=== PATIENT | male | born 1950 | race Two or more races ===

== ENCOUNTER 2016-07-10 01:50 | Emergency (ER) | payer OTHER ==
[~2016-07-10] VITALS: Ht 165.1 cm; Wt 53.5 kg
[~2016-07-10 01:50] MED LIST: BELL30TI2; CLON2TAB3 PO; METO10TA3 PO; NAPR-607; NOR7.5T PO; OMEP20TA44 PO; PRO125RS PO; RANI1TAB4 PO
[2016-07-10 02:12] VITALS: BP 114/73
[2016-07-10 02:34] LABS: Basophils # (auto) 0 uL; Basophils % (auto) 0.8 % (0.0-2.0); Eosinophils # (auto) 0 uL; Eosinophils % (auto) 0.7 % (0.0-7.0); Hematocrit 36.7 % (41.0-53.0); Hemoglobin 12.5 g/dL (13.5-17.5); Lymphocytes # (auto) 0.9 uL; Lymphocytes % (auto) 17.5 % (10.0-50.0); Mean Corpuscular Volume 94.3 fL (80.0-100.0); Mean Platelet Volume 7.4 fL (7.4-10.4); Monocytes # (auto) 0.1 uL; Neutrophils # (auto) 4.3 uL; Platelet Count (auto) 360 10^3/uL (140-450); Red Cell Distribution Width 13.8 % (11.6-16.0); White Blood Cell 5.4 10^3/uL (4.4-10.8)
[2016-07-10 02:51] LABS: Albumin 3.2 g/dL (3.4-5.0); BUN/Creatinine Ratio 14.8; Calcium 7.6 mg/dL (8.5-10.1); Potassium 3.4 mmol/L (3.5-5.1)
[2016-07-10 02:54] LABS: Bilirubin, Total 0.2 mg/dL (0.2-1.0); Total Protein 6.7 g/dL (6.4-8.2)
== END 2016-07-10 08:13 | disposition left against medical advice (07) ==
LOC: ER 01:53
DX: H92.09 Otalgia, unspecified ear (principal); Z53.21 Procedure and treatment not carried out due to patient leaving prior to being seen by health care provider
CPT/HCPCS: 36415; 80053; 84484; 85025; 85049; 93005

== ENCOUNTER 2019-10-17 02:13 | Emergency (ER) | payer OTHER ==
[~2019-10-17] VITALS: Ht 167.6 cm; Wt 54.4 kg
[~2019-10-17 02:13] MED LIST changes: +CLON-707 PO; -CLON2TAB3 PO; -NAPR-607; +NAPR500T31; -OMEP20TA44 PO; +PANT40TA2 PO; -RANI1TAB4 PO
[2019-10-17 02:27] VITALS: BP 153/78
[2019-10-17 03:01] LABS: Basophils # (auto) 0 10 ^3/uL (0-0.2); Basophils % (auto) 0.2 % (0.0-2.0); Eosinophils # (auto) 0 10 ^3/uL (0-0.8); Eosinophils % (auto) 0.1 % (0.0-7.0); Hematocrit 41.9 % (41.0-53.0); Lymphocytes # (auto) 0.8 10 ^3/uL (0.4-5.4); Lymphocytes % (auto) 3.7 % (10.0-50.0); Mean Corpuscular Hemoglobin 31.8 pg (28.0-32.0); Mean Corpuscular Hgb Conc. 33.3 g/dL (32.0-36.0); Mean Corpuscular Volume 95.4 fL (80.0-100.0); Monocytes # (auto) 1.2 10 ^3/uL (0-1.3); Monocytes % (auto) 5.7 % (0.0-12.0); Neutrophils # (auto) 18.7 10 ^3/uL (1.6-8.6); Neutrophils % (auto) 90.3 % (37.0-80.0); Platelet Count (auto) 337 10^3/uL (140-450); Red Cell Distribution Width 15.7 % (11.8-14.3); White Blood Cell 20.7 10^3/uL (4.4-10.8)
[2019-10-17 03:07] LABS: Urine Bacteria FEW /hpf (None Seen); Urine Blood 2+ /uL (Negative); Urine Hyaline Cast FEW /lpf (0 - 2); Urine Specific Gravity 1.014 (1.001-1.035); Urine Sperm PRESENT /hpf (None Seen); Urine WBC 2 /hpf (0 - 3)
[2019-10-17 03:19] LABS: Albumin 4.1 g/dL (3.4-5.0); Anion Gap 12 (5-15); Blood Alcohol < 3.0 mg/dL (0-5); Blood Urea Nitrogen 72 mg/dL (7-18); Calcium 8.6 mg/dL (8.5-10.1); Carbon Dioxide 22 mmol/L (21-32); Chloride 109 mmol/L (98-107); Glucose 153 mg/dL (74-106); Potassium 3.5 mmol/L (3.5-5.1); Sodium 143 mmol/L (136-145)
[2019-10-17 03:23] LABS: Alanine Aminotransferase 45 U/L (16-61); Alkaline Phosphatase 77 U/L (45-117); Aspartate Aminotransferase 218 U/L (15-37); BUN/Creatinine Ratio 23.9; Bilirubin, Total 1.2 mg/dL (0.2-1.0); GFR African American 27 mL/min; GFR Non-African American 22 mL/min; Total Protein 8.1 g/dL (6.4-8.2)
== END 2019-10-17 03:01 | disposition left against medical advice (07) ==
LOC: EDBD 02:13 → ER 02:15
DX: R33.9 Retention of urine, unspecified (principal); F10.129 Alcohol abuse with intoxication, unspecified; Y90.9 Presence of alcohol in blood, level not specified; Z53.21 Procedure and treatment not carried out due to patient leaving prior to being seen by health care provider
CPT/HCPCS: 36415; 80053; 80320; 81001; 85025; 87086

== ENCOUNTER 2021-01-31 06:21 | Inpatient (IN) | payer OTHER ==
[~2021-01-31] VITALS: Ht 160 cm; Wt 56.7 kg
[~2021-01-31 06:21] MED LIST changes: -CLON-707 PO; +CLON-857 PO
[2021-01-31] MEDS ORDERED: SODIUM CHLORIDE 0.9% 1,000 ML IVB ONE (07:00)
[2021-01-31 08:33] LABS: Basophils # (auto) 0 10 ^3/uL (0-0.2); Basophils % (auto) 0.1 % (0.0-2.0); Eosinophils # (auto) 0 10 ^3/uL (0-0.8); Hematocrit 49.9 % (41.0-53.0); Lymphocytes # (auto) 1.4 10 ^3/uL (0.4-5.4); Lymphocytes % (auto) 7.1 % (10.0-50.0); Mean Corpuscular Hemoglobin 33.6 pg (28.0-32.0); Mean Corpuscular Hgb Conc. 34.1 g/dL (32.0-36.0); Mean Corpuscular Volume 98.6 fL (80.0-100.0); Monocytes # (auto) 1.1 10 ^3/uL (0-1.3); Monocytes % (auto) 5.8 % (0.0-12.0); Neutrophils # (auto) 16.5 10 ^3/uL (1.6-8.6); Red Blood Cells 5.06 10^6/uL (4.5-5.90); Red Cell Distribution Width 13.7 % (11.8-14.3)
[2021-01-31 08:53] LABS: Albumin 4.4 g/dL (3.4-5.0); Calcium 7.8 mg/dL (8.5-10.1)
[2021-01-31 08:58] LABS: BUN/Creatinine Ratio 14.8; Bilirubin, Total 1.8 mg/dL (0.2-1.0); Total Protein 9.1 g/dL (6.4-8.2)
[2021-01-31] MEDS ORDERED: MORPHINE SULF INJ 2 MG/ML SYRINGE 1ML IV PRN ×3 (11:00→11:15)
[2021-01-31] MEDS ORDERED: NITROGLYCERIN 0.4 MG SL TAB SL PRN (11:00)
[2021-01-31] MEDS ORDERED: cefTRIAXone 1GM/50ML D5W 50 ML IV ONE (11:15)
[2021-01-31] MEDS ORDERED: PROMETHAZINE HCL 25 MG/ML 1ML IV PRN (11:15)
[2021-01-31] MEDS ORDERED: LORazepam 2MG/ML-1ML VIAL IV PRN (11:15)
[2021-01-31] MEDS ORDERED: LACTULOSE 20Gm/30ML SOLN PO PRN (11:15)
[2021-01-31 12:30] LABS: Urine Amorphous Crystal FEW /hpf (None Seen); Urine Bacteria NONE SEEN /hpf (None Seen); Urine Blood 3+ /uL (Negative); Urine Hyaline Cast MOD /lpf (0 - 2); Urine Specific Gravity 1.016 (1.001-1.035); Urine Sperm PRESENT /hpf (None Seen); Urine WBC 2 /hpf (0 - 3)
[2021-01-31 12:35] LABS: Amphetamine Screen, Urine POSITIVE (NEGATIVE); Barbiturate Scree,Urine NEGATIVE (NEGATIVE); Cannabinoid Screen, Urine NEGATIVE (NEGATIVE)
[2021-01-31 12:54] LABS: Alcohol, Urine < 3.0 mg/dL (0-10); Benzodiazephine Screen, Urine POSITIVE (NEGATIVE); Cocaine Screen, Urine NEGATIVE (NEGATIVE); Opiate Scree,Urine NEGATIVE (NEGATIVE); Phencyclidine Screen, Urine NEGATIVE (NEGATIVE)
[2021-01-31 13:42] LABS: Amylase 60 U/L (25-115); Lipase 65 U/L (73-393)
[2021-01-31] MEDS: SODIUM BICARBONATE 50ML VIAL 75 ML in SOD CHL 0.45% 1,000 ML IV SCH ×2 (14:37→22:13)
[2021-01-31 22:00] VITALS: BP 127/78
[2021-01-31] MEDS ORDERED: SODIUM BICARBONATE 8.4 % INJ 50ML VIAL IV ONE ×2 (23:13→23:22)
[2021-02-01 00:25] VITALS: BP 127/78
[2021-02-01] MEDS ORDERED: SODIUM BICARBONATE 8.4 % INJ 50ML VIAL IV ONE (03:01)
[2021-02-01] MEDS: SODIUM BICARBONATE 50ML VIAL 75 ML in SOD CHL 0.45% 1,000 ML IV SCH (03:48)
[2021-02-01 05:00] VITALS: BP 119/70
[2021-02-01] MEDS ORDERED: cefTRIAXone 1GM/50ML D5W 50 ML IV SCH (09:00)
[2021-02-01] MEDS ORDERED: PANTOPRAZOLE 40 MG TAB PO SCH (10:00)
== END 2021-02-01 09:02 | disposition left against medical advice (07) | DRG 917 ==
LOC: ER 06:21 → EDBD 06:21 → TELE 10:58 → TELE-WESTW 20:00
PROVIDERS: ADMIT Internal Medicine; ATTEND Internal Medicine
DX: T51.0X1A Toxic effect of ethanol, accidental (unintentional), initial encounter (principal); N17.0 Acute kidney failure with tubular necrosis; G92 Toxic encephalopathy; E87.2 Acidosis; M62.82 Rhabdomyolysis; Z20.822 Contact with and (suspected) exposure to COVID-19; F10.129 Alcohol abuse with intoxication, unspecified; Z83.3 Family history of diabetes mellitus; Z82.3 Family history of stroke; Z84.1 Family history of disorders of kidney and ureter; K82.8 Other specified diseases of gallbladder; Z86.73 Personal history of transient ischemic attack (TIA), and cerebral infarction without residual deficits; Z53.29 Procedure and treatment not carried out because of patient's decision for other reasons; F41.9 Anxiety disorder, unspecified; Y90.0 Blood alcohol level of less than 20 mg/100 ml
CPT/HCPCS: 36415; 36600; 70450; 71045; 76700; 76775; 80053; 80307; 80320; 81001; 82150; 82550; 82805; 83690; 85025; 85652; 86141; 87086; 87426; 93005; 96361; 96365; 96375; 99291; G0378; J0696; J7042

== ENCOUNTER 2021-09-05 17:18 | Emergency (ER) | payer OTHER ==
[~2021-09-05] VITALS: Ht 165.1 cm; Wt 72.6 kg
[~2021-09-05 17:18] MED LIST changes: +AMLO-496 PO; -BELL30TI2; -CLON-857 PO; +LOSA-69 PO; -METO10TA3 PO; -NAPR500T31; -NOR7.5T PO; -PANT40TA2 PO; -PRO125RS PO
[2021-09-05 17:32] VITALS: BP 117/75
== END 2021-09-05 17:39 | disposition left against medical advice (07) ==
LOC: EDBD 17:18 → ER 17:18
DX: F41.8 Other specified anxiety disorders (principal); Z53.21 Procedure and treatment not carried out due to patient leaving prior to being seen by health care provider

== ENCOUNTER 2025-05-29 14:23 | Inpatient (IN) | payer OTHER, MEDICAID ==
[~2025-05-29] VITALS: Ht 170.2 cm; Wt 56.0 kg
[~2025-05-29 14:23] MED LIST changes: -AMLO-496 PO; +AMLO1TAB23 PO; -LOSA-69 PO
--- NOTE | 2025-05-29 14:35 | ED.PDOC ---
History of Present Illness HPI Comments 71-year-old male brought by paramedics because he was disturbing the neighbors with fall language. Patient is just talking without any sense. He is moving all extremities. No sign of any injury. Unable to get history from the patient. Paramedics did state that he denies any suicidal or homicidal ideation. Denies any other symptoms. Chief Complaint: Mental Health Time Seen by MD: 14:28 Reviewed Notes: Nurses Notes, Medications, Allergies Allergies: Coded Allergies: NO KNOWN ALLERGIES (Unverified , 05/29/25) Information Source: Emergency Med Personnel Mode of Arrival: EMS Severity: Moderate Timing: Hours Duration: Since onset Past Medical History PAST MEDICAL HISTORY: Denies Surgical History: Denies all surgeries Social History Smoker: Non-Smoker Alcohol: Denies ETOH Use Drugs: Denies Drug Use Constitutional: denies: chills, diaphoresis, fatigue, fever, malaise, sweats, weakness, others EENTM: denies: blurred vision, double vision, ear bleeding, ear discharge, ear drainage, ear pain, ear ringing, eye pain, eye redness, hearing loss, mouth pain, mouth swelling, nasal discharge, nose bleeding, nose congestion, nose pain, photophobia, tearing, throat pain, throat swelling, voice changes, others Respiratory: denies: cough, hemoptysis, orthopnea, SOB at rest, shortness of breath, SOB with excertion, stridor, wheezing, others Cardiovascular: denies: chest pain, dizzy spells, diaphoresis, Dyspnea on exertion, edema, irregular heart beat, left arm pain, lightheadedness, palpitations, PND, syncope, others Gastrointestinal: denies: abdomen distended, abdominal pain, blood streaked bowels, constipated, diarrhea, dysphagia, difficulty swallowing, hematemesis, melena, nausea, poor appetite, poor fluid intake, rectal bleeding, rectal pain, vomiting, others Genitourinary: denies: burning, dysuria, flank pain, frequency, hematuria, incontinence, penile discharge, penile sore, pain, testicle pain, testicle swelling, urgency, others Neurological: denies: dizziness, fainting, headache, left sided numbness, left sided weakness, numbness, paresthesia, pre-existing deficit, right sided numbness, right sided weakness, seizure, speech problems, tingling, tremors, weakness, others Musculoskeletal: denies: back pain, gout, joint pain, joint swelling, muscle pain, muscle stiffness, neck pain, others Integumetry: denies: bruises, change in color, change in hair/nails, dryness, laceration, lesions, lumps, rash, wounds, others Allergic/Immunocompromised: denies: Difficulty Healing, Frequent Infections, Hives, Itching, others Hematologic/Lymphatic: denies: anemia, blood clots, easy bleeding, easy bruising, swollen glands, others Endocrine: denies: excessive hunger, excessive sweating, excessive thirst, excessive urination, flushing, intolerance to cold, intolerance to heat, unexplained weight gain, unexplained weight loss, others Psychiatric: reports: schizophrenia; denies: anxiety, bipolar disorder, depression, hopeless, panic disorder, sleepless, suicidal, others Physical Exam General Appearance: Moderate Distress HEENT: Normal ENT Inspection, Pharynx Normal, TMs Normal Neck: Full Range of Motion, Non-Tender, Normal, Normal Inspection Respiratory: Chest Non-Tender, Lungs Clear, No Accessory Muscle Use, No Respiratory Distress, Normal Breath Sounds Cardiovascular: No Edema, No JVD, No Murmur, No Gallop, Normal Peripheral Pulses, Regular Rate/Rhythm Breast Exam: Deferred Gastrointestinal: No Organomegaly, Non Tender, No Pulsatile Mass, Normal Bowel Sounds, Soft Genitalia: Deferred Pelvic: Deferred Rectal: Deferred Extremities: No calf tenderness, Normal capillary refill, Normal inspection, Normal range of motion, Non-tender, No pedal edema Musculoskeletal : Apperance: Normal Neurologic: Alert, honey grader and blender II-XII nml as Tested, No Motor Deficits, Normal Affect, Normal Mood, No Sensory Deficits Cerebellar Function: NOT DONE Reflexes: NOT DONE Skin: Dry, Normal Color, Warm Peripheral Pulses: 3+ Radial (R), 3+ Radial (L) Lymphatic: No Adenopathy Was a procedure done? Was a procedure done?: No Differential Dx Considerations may include: Anxiety X-Ray, Labs, Meds, VS Vital Signs Date Time Temp Pulse Resp B/P (MAP) Pulse Ox O2 Delivery O2 Flow Rate FiO2 05/29/25 14:23 97.9 115 18 112/83 96 97.9 Lab Test 05/29/25 16:19 Range/Units White Blood Count 24.5 H 4.4-10.8 10^3/uL Red Blood Count 4.54 4.5-5.90 10^6/uL Hemoglobin 14.9 13.5-17.5 g/dL Hematocrit 44.5 41.0-53.0 % Mean Corpuscular Volume 97.9 80.0-100.0 fL Mean Corpuscular Hemoglobin 32.8 H 28.0-32.0 pg Mean Corpuscular Hemoglobin Concent 33.6 32.0-36.0 g/dL Red Cell Distribution Width 13.6 11.8-14.3 % Platelet Count 322 140-450 10^3/uL Mean Platelet Volume 8.1 6.9-10.8 fL Neutrophils (%) (Auto) 89.9 H 37.0-80.0 % Lymphocytes (%) (Auto) 3.9 L 10.0-50.0 % Monocytes (%) (Auto) 5.7 0.0-12.0 % Eosinophils (%) (Auto) 0.0 0.0-7.0 % Basophils (%) (Auto) 0.5 0.0-2.0 % Neutrophils # (Auto) 22.0 H 1.6-8.6 10 ^3/uL Lymphocytes # (Auto) 1.0 0.4-5.4 10 ^3/uL Monocytes # (Auto) 1.4 H 0-1.3 10 ^3/uL Eosinophils # (Auto) 0 0-0.8 10 ^3/uL Basophils # (Auto) 0.1 0-0.2 10 ^3/uL Nucleated Red Blood Cells 0.0 % Sodium Level Pending Potassium Level Pending Chloride Level Pending Carbon Dioxide Level Pending Anion Gap Pending Blood Urea Nitrogen Pending Creatinine Pending Glomerular Filtration Rate Calc Pending BUN/Creatinine Ratio Pending Serum Glucose Pending Calcium Level Pending Total Bilirubin Pending Aspartate Amino Transferase (AST) Pending Alanine Aminotransferase (ALT) Pending Alkaline Phosphatase Pending Total Protein Pending Albumin Pending Patient anxious. Unable to get a good history from the patient. Vitals stable. Moving all extremities. No head injury. WBC elevated. Hemoglobin within normal limits. Possible sepsis. Sepsis protocol. Family states that for the past two days he has been confused behaving abnormal. Continue monitoring. Time of 1ST Reevaluation: 14:33 Reevaluation 1ST: Unchanged Patient Education/Counseling: Diagnosis, Treatment, Prognosis Family Education/Counseling: No Family Present SEPSIS Sepsis Screen Physician Orders Drug Screen (05/29/25 14:36) *Tele Psych Consult (05/29/25 14:37) Comprehensive Metabolic Panel (05/29/25 16:11) Urinalysis (05/29/25 16:11) Head Without Contrast (05/29/25 16:11) Vital Signs Date Time Temp Pulse Resp B/P (MAP) Pulse Ox O2 Delivery O2 Flow Rate FiO2 05/29/25 14:23 97.9 115 18 112/83 96 97.9 Laboratory Tests Test 05/29/25 16:19 White Blood Count 24.5 10^3/uL (4.4-10.8) H Departure 1 Departure Time of Disposition: 14:35 Impression: Primary Impression: Metabolic encephalopathy Disposition: ADMITTED INPATIENT Admit to: Med Surg Condition: Guarded Critical Care Note Critical Care Time?: No Stability Stability form required: No Heart Score Heart Score: Heart Score Response (Comments) Value History N/A 0 EKG N/A 0 Age N/A 0 Risk Factors N/A 0 Troponin N/A 0 Total 0 CARLOTA GALE MD May 29, 2025 14:35
[2025-05-29 16:31] LABS: Hematocrit 44.5 % (41.0-53.0); Hemoglobin 14.9 g/dL (13.5-17.5); Mean Corpuscular Hemoglobin 32.8 pg (28.0-32.0); Mean Corpuscular Volume 97.9 fL (80.0-100.0); Nucleated Red Blood Cells % 0.0 %
[2025-05-29 16:53] LABS: Alkaline Phosphatase 109 U/L (46-116); Anion Gap 23 (5-15); BUN/Creatinine Ratio 22.6 (10.0-20.0); Chloride 106 mmol/L (98-107); Potassium 4.7 mmol/L (3.5-5.1); Sodium 144 mmol/L (136-145)
[2025-05-29 16:54] LABS: Bilirubin, Total 0.6 mg/dL (0.2-1.0)
[2025-05-29 16:57] LABS: Alanine Aminotransferase 52 U/L (7-40); Albumin 4.9 g/dL (3.2-4.8); Calcium 7.8 mg/dL (8.7-10.4); Carbon Dioxide 15 mmol/L (20-31); Glucose 70 mg/dL (74-106); Total Protein 8.3 g/dL (5.7-8.2)
[2025-05-29 17:00] LABS: Blood Urea Nitrogen 95 mg/dL (9-23)
[2025-05-29] MEDS: LORazepam 2MG/ML-1ML VIAL IV ONE (17:05)
[2025-05-29] MEDS: SODIUM CHLORIDE 0.9% 1,000 ML IV ONE ×4 (17:05→23:51)
[2025-05-29] MEDS: AZITHROMYCIN 500MG/250ML 250 ML IV ONE (17:23)
[2025-05-29 18:00] VITALS: PULSE 101; RESP 29; O2SAT 97
[2025-05-29] MEDS: MIDAZOLAM HCL 2MG/2ML 2ml VIAL (1mg/ml) IV ONE ×2 (20:36→21:31)
[2025-05-29] MEDS: HALOPERIDOL LACTATE 5 MG/ML INJ VIAL IM ONE (21:30)
--- NOTE | 2025-05-29 22:25 | ECG ---
[facility] Test Date: 2025-05-29 Test Time: 22:11:54 Pat Name: AMINAH RANKIN Department: ED Room: 0287T Gender: M Ironer Machine: TRINH : 1950 Requested By: CARLOTA GALE Order Number: [id number] Reading MD: Seth Mcdermott Measurements Intervals [place] Rate: 89 P: 71 [place]: 158 QRS: 55 QRSD: 84 T: 60 QT: 430 QTc: 524 Interpretive Statements Sinus rhythm Multiple ventricular premature complexes Biatrial enlargement Prolonged QT interval Electronically Signed On 05-31-2025 17:03:41 PST by Seth Mcdermott Please click the below link to view image of tracing.
[2025-05-29 22:29] LABS: Hematocrit 41.0 % (41.0-53.0); Hemoglobin 13.6 g/dL (13.5-17.5); Mean Corpuscular Hemoglobin 32.3 pg (28.0-32.0); Mean Corpuscular Volume 97.3 fL (80.0-100.0); Nucleated Red Blood Cells % 0.0 %
[2025-05-29 22:44] LABS: Albumin 4.3 g/dL (3.2-4.8); Alkaline Phosphatase 94 U/L (46-116); Anion Gap 21 (5-15); BUN/Creatinine Ratio 24.2 (10.0-20.0); Glucose 100 mg/dL (74-106); Potassium 4.4 mmol/L (3.5-5.1); Sodium 142 mmol/L (136-145); Total Protein 7.5 g/dL (5.7-8.2)
--- NOTE | 2025-05-29 22:44 | DVH ---
CT HEAD WITHOUT CONTRAST INDICATION: ALOC EXAM DATE: 05/29/2025 09:59 PM COMPARISON: None RADIATION DOSE: CTDIvol: 61.57 mGy, DLP: 1110.05 mGy*cm PROCEDURE: CT scans of the head were obtained from the vertex to the skull base. Sagittal and coronal reconstructions were provided. All CT scans at this medical facility are performed using dose modulation techniques as appropriate to a performed exam including the following: Automated exposure control was utilized; adjustment of the MA and/or KV according to patient size; and use of iterative reconstruction technique. FINDINGS: Motion and streak artifact degrade fine detail. No acute territorial infarct, intracranial hemorrhage, or mass effect. There are global involutional changes with compensatory prominence of the ventricles and sulci. Patchy periventricular and subcortical white matter hypoattenuation is nonspecific but may be related to small vessel ischemic disease. The orbits are normal. The paranasal sinuses and mastoid air cells are clear. The osseous structures are unremarkable. IMPRESSION: 1. No acute territorial infarct, intracranial hemorrhage, or mass effect. 2. Age-related involutional changes. Chronic microvascular changes. 3. If clinical symptoms persist, MRI may be beneficial in further evaluation.
[2025-05-29 22:45] LABS: Bilirubin, Total 0.4 mg/dL (0.2-1.0)
[2025-05-29 22:51] LABS: Alanine Aminotransferase 49 U/L (7-40); Calcium 7.2 mg/dL (8.7-10.4); Carbon Dioxide 13 mmol/L (20-31); Chloride 108 mmol/L (98-107)
[2025-05-29 22:53] LABS: Blood Urea Nitrogen 108 mg/dL (9-23)
[2025-05-29 22:57] LABS: Urine Amorphous Crystal FEW /hpf (None Seen); Urine Protein, UAD 1+ (Negative)
[2025-05-29 22:59] LABS: Benzodiazephine Screen, Urine Pos (NEGATIVE); Cannabinoid Screen, Urine Neg (NEGATIVE)
[2025-05-29 23:19] LABS: Amphetamine Screen, Urine Pos (NEGATIVE); Barbiturate Scree,Urine Neg (NEGATIVE); Cocaine Screen, Urine Neg (NEGATIVE); Opiate Scree,Urine Neg (NEGATIVE); Phencyclidine Screen, Urine Neg (NEGATIVE)
[2025-05-29] MEDS ORDERED: NITROGLYCERIN 0.4 MG SL TAB SL PRN (23:30)
[2025-05-29] MEDS ORDERED: ONDANSETRON HCL 4 MG/2 ML VIAL IV PRN (23:30)
[2025-05-29] MEDS ORDERED: MORPHINE SULFATE INJ 2 MG/ml SYRG IV PRN (23:30)
[2025-05-29] MEDS: MAGNESIUM SULFATE 1GM/100ML 100 ML IV SCH (23:40)
[2025-05-30] VITALS: PULSE 98; RESP 23; O2SAT 97
[2025-05-30 00:01] LABS: Base Excess -14.1 mmol/L (-2.0-3.0)
[2025-05-30] MEDS: SODIUM CHLORIDE 0.9% 2,000 ML IV ONE (00:18)
[2025-05-30] MEDS: PANTOPRAZOLE 40 MG/10 ML VIAL INJ IV ONE (00:24)
--- NOTE | 2025-05-30 00:30 | DVH ---
CHEST RADIOGRAPH Indication: sob Technique: Single frontal view of the chest was obtained COMPARISON: None FINDINGS: Lines and Tubes: None Lungs: Clear Pleura: No effusion. No pneumothorax. Cardiomediastinal contours: Unremarkable Bones: Unremarkable. ACDF hardware. IMPRESSION: 1. No radiographic evidence of acute cardiopulmonary abnormality.
[2025-05-30 03:01] LABS: Hematocrit 35.2 % (41.0-53.0); Hemoglobin 12.1 g/dL (13.5-17.5); Mean Corpuscular Hemoglobin 33.6 pg (28.0-32.0); Mean Corpuscular Volume 97.7 fL (80.0-100.0); Nucleated Red Blood Cells % 0.1 %
[2025-05-30 03:09] LABS: Albumin 3.4 g/dL (3.2-4.8); Alkaline Phosphatase 73 U/L (46-116); Anion Gap 17 (5-15); BUN/Creatinine Ratio 28.3 (10.0-20.0); Glucose 82 mg/dL (74-106); Potassium 4.5 mmol/L (3.5-5.1); Total Protein 5.9 g/dL (5.7-8.2)
[2025-05-30 03:10] LABS: Bilirubin, Total 0.3 mg/dL (0.2-1.0)
[2025-05-30 03:17] LABS: Alanine Aminotransferase 41 U/L (7-40); Calcium 6.1 mg/dL (8.7-10.4); Carbon Dioxide 13 mmol/L (20-31); Chloride 115 mmol/L (98-107); Sodium 145 mmol/L (136-145)
[2025-05-30 03:19] LABS: Blood Urea Nitrogen 94 mg/dL (9-23)
--- NOTE | 2025-05-30 03:31 | DVHHP2 ---
History of Present Illness Reason for Visit: Altered mental status History of Present Illness 71-year-old male presents for evaluation of altered mental status. Patient is neighbors called police due to patient disturbing with foul language. EMS was called due to patient's erratic behavior. Currently patient is alert but not answering questions. No slurred speech or unilateral weakness noted. Past Medical History Unknown Past Surgical History Unknown Family History Unknown Review of Systems Review of Systems Review of systems can not be completed due to the patient's altered mental status. Allergies: Coded Allergies: NO KNOWN ALLERGIES (Unverified , 05/29/25) Medications Current Medications Medications Dose Ordered Sig/Don Route Start Time Stop Time Status Last Admin Dose Admin Cefepime HCl 50 ml @ 12.5 mls/hr DAILY IV 05/30/25 10:00 Ondansetron HCl 4 mg Q4HP PRN IV 05/29/25 23:30 Nitroglycerin 0.4 mg Q5MINP PRN SL 05/29/25 23:30 Morphine Sulfate 2 mg Q30M PRN IV 05/29/25 23:30 Pantoprazole Sodium 40 mg DAILY IV 05/30/25 10:00 Exam Vital Signs Vital Signs Date Time Temp Pulse Resp B/P (MAP) Pulse Ox O2 Delivery O2 Flow Rate FiO2 05/30/25 02:00 94 21 119/48 (71) 92 05/30/25 00:00 Room Air* 0 21 05/29/25 18:00 97.8 97.8 Exam Gen: 71-year-old male in mild distress Skin: Warm, dry, normal color and texture, no rash. HEENT: Normocephalic atraumatic, mucous membranes moist and pink. Neck: Cervical and supraclavicular nodes normal without enlargement, trachea is midline, thyroid gland is normal without masses. Pulmonary: Clear to auscultation and percussion bilaterally. Cardiac: Regular rate and rhythm. No murmur Abdomen: Soft, nontender, nondistended, bowel sounds present all 4 quadrants, no guarding, no rigidity, no organomegaly. Extremities: No cyanosis, clubbing, no edema Neuro: Disoriented Labs/Xrays ORDERING PHYSICIAN: CARLOTA GALE MD PROCEDURE(s): HWOCT - HEAD WITHOUT CONTRAST REASON: ALOC ORDER NUMBER(s): [id number], ACCESSION NUMBER(s): [id number] CT HEAD WITHOUT CONTRAST INDICATION: ALOC EXAM DATE: 05/29/2025 09:59 PM COMPARISON: None RADIATION DOSE: CTDIvol: 61.57 mGy, DLP: 1110.05 mGy*cm PROCEDURE: CT scans of the head were obtained from the vertex to the skull base. Sagittal and coronal reconstructions were provided. All CT scans at this medical facility are performed using dose modulation techniques as appropriate to a performed exam including the following: Automated exposure control was utilized; adjustment of the MA and/or KV according to patient size; and use of iterative reconstruction technique. FINDINGS: Motion and streak artifact degrade fine detail. No acute territorial infarct, intracranial hemorrhage, or mass effect. There are global involutional changes with compensatory prominence of the ventricles and sulci. Patchy periventricular and subcortical white matter hypoattenuation is nonspecific but may be related to small vessel ischemic disease. The orbits are normal. The paranasal sinuses and mastoid air cells are clear. The osseous structures are unremarkable. IMPRESSION: 1. No acute territorial infarct, intracranial hemorrhage, or mass effect. 2. Age-related involutional changes. Chronic microvascular changes. 3. If clinical symptoms persist, MRI may be beneficial in further evaluation. RING PHYSICIAN: AMINAH LOYOLA PROCEDURE(s): CXR1 - CHEST XRAY 1 VIEW REASON: sob ORDER NUMBER(s): [id number], ACCESSION NUMBER(s): [id number] CHEST RADIOGRAPH Indication: sob Technique: Single frontal view of the chest was obtained COMPARISON: None FINDINGS: Lines and Tubes: None Lungs: Clear Pleura: No effusion. No pneumothorax. Cardiomediastinal contours: Unremarkable Bones: Unremarkable. ACDF hardware. IMPRESSION: 1. No radiographic evidence of acute cardiopulmonary abnormality. Labs Test 05/30/25 02:35 05/29/25 23:49 05/29/25 22:18 05/29/25 21:16 Range/Units White Blood Count 18.1 H 4.4-10.8 10^3/uL Red Blood Count 3.60 L 4.5-5.90 10^6/uL Hemoglobin 12.1 L 13.5-17.5 g/dL Hematocrit 35.2 #L 41.0-53.0 % Mean Corpuscular Volume 97.7 80.0-100.0 fL Mean Corpuscular Hemoglobin 33.6 H 28.0-32.0 pg Mean Corpuscular Hemoglobin Concent 34.4 32.0-36.0 g/dL Red Cell Distribution Width 13.8 11.8-14.3 % Platelet Count 238 140-450 10^3/uL Mean Platelet Volume 8.2 6.9-10.8 fL Neutrophils (%) (Auto) 86.5 H 37.0-80.0 % Lymphocytes (%) (Auto) 8.9 L 10.0-50.0 % Monocytes (%) (Auto) 4.5 0.0-12.0 % Eosinophils (%) (Auto) 0.0 0.0-7.0 % Basophils (%) (Auto) 0.1 0.0-2.0 % Neutrophils # (Auto) 15.7 H 1.6-8.6 10 ^3/uL Lymphocytes # (Auto) 1.6 0.4-5.4 10 ^3/uL Monocytes # (Auto) 0.8 0-1.3 10 ^3/uL Eosinophils # (Auto) 0 0-0.8 10 ^3/uL Basophils # (Auto) 0 0-0.2 10 ^3/uL Nucleated Red Blood Cells 0.1 % Sodium Level 145 136-145 mmol/L Potassium Level 4.5 3.5-5.1 mmol/L Chloride Level 115 H 98-107 mmol/L Carbon Dioxide Level 13 L 20-31 mmol/L Anion Gap 17 H 5-15 Blood Urea Nitrogen 94 #*H 9-23 mg/dL Creatinine 3.32 H 0.700-1.30 mg/dL Glomerular Filtration Rate Calc 19 >90 mL/min BUN/Creatinine Ratio 28.3 H 10.0-20.0 Serum Glucose 82 74-106 mg/dL Calcium Level 6.1 L 8.7-10.4 mg/dL Total Bilirubin 0.3 0.2-1.0 mg/dL Aspartate Amino Transferase (AST) 206 H 13-40 U/L Alanine Aminotransferase (ALT) 41 H 7-40 U/L Alkaline Phosphatase 73 46-116 U/L Total Protein 5.9 5.7-8.2 g/dL Albumin 3.4 3.2-4.8 g/dL Blood Gas Specimen Type Arterial Blood Gas Sample Site Right radial Blood Gas Patient Temperature 37.0 Arterial Blood Date Drawn [id number] Arterial Blood pH 7.273 L 7.350-7.450 Arterial Blood Partial Pressure CO2 24.1 L 35.0-48.0 mmHg Arterial Blood Partial Pressure O2 90.5 83.0-108.0 mmHg Arterial Blood HCO3 10.9 L 21.0-28.0 mmol/L Arterial Blood Oxygen Saturation 95.6 94.0-98.0 % Arterial Blood Base Excess -14.1 L -2.0-3.0 mmol/L Arterial Blood Oxyhemoglobin 94.3 94.0-98.0 % Arterial Blood Carboxyhemoglobin 1.0 0.5-1.5 % Arterial Blood Methemoglobin 0.4 0.0-1.5 % Arterial Blood Deoxyhemoglobin 4.3 0.0-5.0 % Sriram Test Positive Blood Gas Total Hemoglobin 13.60 13.5-17.5 g/dL Blood Gas Modality Room air FiO2 % 21.0 Urine Color Yellow Yellow Urine Clarity Turbid H Clear Urine pH 5.0 5.0-9.0 Urine Specific [place] 1.018 1.001-1.035 Urine Protein 1+ H Negative Urine Ketones Trace Negative Urine Blood 3+ H Negative /uL Urine Nitrite Negative Negative Urine Bilirubin 1+ Negative Urine Urobilinogen Normal Negative mg/dL Urine Leukocyte Esterase Negative Negative /uL Urine RBC 4 0 - 3 /hpf Urine Microscopic WBC 3 0-3 /HPF Urine Squamous Epithelial Cells Few <5 /hpf Urine Amorphous Crystals Few None Seen /hpf Urine Bacteria None seen None Seen /hpf Urine Hyaline Casts Many 0 - 2 /lpf Urine Mucus Few None Seen Urine Glucose Normal Normal mg/dL Urine Opiates Screen Neg NEGATIVE Urine Fentanyl Screen Neg NEGATIVE Urine Barbiturates Screen Neg NEGATIVE Urine Phencyclidine Screen Neg NEGATIVE Urine Amphetamines Screen Pos NEGATIVE Urine Benzodiazepines Screen Pos NEGATIVE Urine Cocaine Screen Neg NEGATIVE Urine Cannabinoids Screen Neg NEGATIVE Magnesium Level 3.3 H 1.6-2.6 mg/dL Test 05/29/25 16:59 05/29/25 16:19 Range/Units Lactic Acid Level 1.5 0.4-2.0 mmol/L Creatine Kinase 47767 H 46-171 U/L SEPSIS Sepsis Screen Date sepsis recognized/suspect: May 29, 2025 Time Sepsis recognized/suspect: 0000 Recent Procedure: No On Antibiotic Therapy: Yes Respiratory Rate >20: No Heart Rate >90: No Temp<36 C (96.8 F) or >38.3 C: No SBP <90 or MAP <65 mmHG: No New Acute Mental Status Change: No Is the patient on CPAP, BIPAP,: No Physician Orders Straight Cath Patient (05/29/25 20:21) Sodium Chloride 0.9% (05/29/25 23:30) Cefepime 1gm/50ml (Maxipime 1gm/50ml) (05/30/25 10:00) *[facility] (05/29/25 23:30) Chest Xray 1 View (05/30/25 04:00) Creatine Kinase Ckmb (05/30/25 10:00) Admit (05/29/25 23:30) Ondansetron Hcl (Zofran) (05/29/25 23:30) Npo (Nothing By Mouth) Diet (05/30/25 Breakfast) Condition: Fair (05/29/25 23:30) Maintain Bed Rest (05/29/25 23:30) Nitroglycerin Sublingual (Ntrostat Subli (05/29/25 23:30) Morphine Sulfate Injection (05/29/25 23:30) Stat Ekg For Chest Pain (05/29/25 23:30) Notify Md Of Changes From [facility] (05/29/25 23:30) [employer] Salesperson For 24 Hours (05/29/25 23:30) Emergency Dysrhythmia Protocol (05/29/25 23:30) Rhythm Strips Once Every Shift (05/29/25 23:30) Oxygen By Nasal Cannula (05/29/25 23:30) Abg W/ Co-Ox (05/29/25 23:30) Pantoprazole (Protonix) (05/30/25 10:00) Transfer Orders (05/29/25 23:37) Calcium Ivpb (05/30/25 03:30) Vital Signs Date Time Temp Pulse Resp B/P (MAP) Pulse Ox O2 Delivery O2 Flow Rate FiO2 05/30/25 02:00 94 21 119/48 (71) 92 05/30/25 00:30 92 22 115/47 (69) 96 05/30/25 00:00 98 23 97 Room Air* 0 21 05/30/25 00:00 96 05/29/25 23:52 87 27 90/54 (66) 96 05/29/25 23:13 84 25 67/35 (46) 96 05/29/25 22:11 89 05/29/25 22:00 95 18 100/54 (69) 97 05/29/25 20:00 94 29 101/64 (76) 97 Laboratory Tests Test 05/29/25 16:19 05/29/25 16:59 05/29/25 21:16 05/30/25 02:35 White Blood Count 24.5 10^3/uL (4.4-10.8) H 23.0 10^3/uL (4.4-10.8) H 18.1 10^3/uL (4.4-10.8) H Lactic Acid Level 1.5 mmol/L (0.4-2.0) Medications Medications Dose Ordered Sig/Don Route Start Time Stop Time Status Last Admin Dose Admin Azithromycin 250 ml @ 125 mls/hr ONCE ONCE IV 05/29/25 16:45 05/29/25 18:44 DC 05/29/25 17:23 125 MLS/HR Ceftriaxone Sodium 50 ml @ 100 mls/hr ONCE ONCE IV 05/29/25 16:45 05/29/25 17:14 DC 05/29/25 17:05 100 MLS/HR Haloperidol Lactate 5 mg ONCE ONCE IM 05/29/25 21:30 05/29/25 21:31 DC 05/29/25 21:30 5 MG Magnesium Sulfate/ Dextrose 100 ml @ 100 mls/hr Q1H IV 05/29/25 22:30 05/30/25 00:29 DC 05/30/25 00:29 100 MLS/HR Midazolam HCl 2 mg ONCE ONCE IV 05/29/25 20:30 05/29/25 20:31 DC 05/29/25 20:36 2 MG Midazolam HCl 2 mg ONCE ONCE IV 05/29/25 21:30 05/29/25 21:31 DC 05/29/25 21:31 2 MG Pantoprazole Sodium 40 mg ONCE ONCE IV 05/29/25 23:30 05/29/25 23:48 DC 05/30/25 00:24 40 MG Sodium Chloride 1,000 ml @ 125 mls/hr Q8H ONCE IV 05/29/25 23:30 05/30/25 07:29 05/29/25 23:51 125 MLS/HR Sodium Chloride 1,000 ml @ 150 mls/hr Q6H40M ONCE IV 05/29/25 16:45 05/29/25 23:24 DC 05/29/25 23:40 150 MLS/HR Sodium Chloride 1,000 ml @ 1,000 mls/hr Q1H ONCE IV 05/29/25 16:45 05/29/25 17:44 DC 05/29/25 23:34 1,000 MLS/HR Sodium Chloride 2,000 ml @ 1,000 mls/hr Q2H ONCE IV 05/29/25 23:30 05/30/25 01:29 DC 05/30/25 00:18 1,000 MLS/HR Assessment/Plan Assessment/Plan Assessment Metabolic encephalopathy Rhabdomyolysis Leukocytosis,? Reactive Acute renal failure Transaminitis, downtrending Plan Admit the patient to [facility] to the hospitalist Nephrology consultation Maintenance IV fluids Cefepime Blood cultures pending Continue treatment per orders. Plan discussed with: Other My Orders Orders - AMINAH LOYOLA Procedure Category Date Status Time Straight Cath Patient ORDERS 05/29/25 Transmitted 20:21 Sodium Chloride 0.9% PHA 05/29/25 In Process 23:30 Cefepime 1gm/50ml PHA 05/30/25 In Process (Maxipime 1gm/50ml) 10:00 *[facility] CONS 05/29/25 Transmitted -[place] 23:30 Chest Xray 1 View XY 05/30/25 Resulted 04:00 Creatine Kinase Ckmb LAB 05/30/25 In Process 10:00 Admit ADMIT 05/29/25 Transmitted 23:30 Ondansetron Hcl PHA 05/29/25 In Process (Zofran) 23:30 Npo (Nothing By DIET 05/30/25 Transmitted Mouth) Diet Breakfast Condition: Fair BARON 05/29/25 In Process 23:30 Maintain Bed Rest BARON 05/29/25 In Process 23:30 Nitroglycerin PHA 05/29/25 In Process Sublingual (Ntrostat 23:30 Morphine Sulfate PHA 05/29/25 In Process Injection 23:30 Stat Ekg For Chest [facility]ON 05/29/25 In Process Pain 23:30 Notify Of Changes [facility] 05/29/25 In Process From [facility] 23:30 [employer] Salesperson For [facility] 05/29/25 In Process 24 Hours 23:[address] [facility] 05/29/25 In Process Protocol 23:30 Rhythm Stri[address] [facility] 05/29/25 In Process Every Shift 23:30 Oxygen By Nasal RT 05/29/25 Transmitted Cannula 23:30 Abg W/ Co-Ox RT 05/29/25 Logged 23:30 Pantoprazole PHA 05/30/25 In Process (Protonix) 10:00 Transfer Orders XFER 05/29/25 Transmitted 23:37 Calcium Ivpb PHA 05/30/25 Verified 03:30 Date of Service: May 29, 2025 Billing Provider: AMINAH LOYOLA Common Visit Codes: [id number] CARE 30-74 MIN AMINAH LOYOLA May 30, 2025 03:31
[2025-05-30] MEDS: CALCIUM GLUC 1,000mg/50ml-NS 50 ML IV SCH (04:37)
[2025-05-30 07:50] VITALS: PULSE 103; RESP 18; O2SAT 97
[2025-05-30] MEDS: CEFEPIME 1GM/50ML 50 ML IV SCH (10:06)
[2025-05-30] MEDS: PANTOPRAZOLE 40 MG/10 ML VIAL INJ IV SCH (10:06)
--- NOTE | 2025-05-30 10:21 | DVHINCON2 ---
Date of Service if different f: May 30, 2025 Consultation ([facility]) Consulting Physician: ЮЛИЯ ASKEW MD Labs Laboratory Tests Test 05/29/25 16:19 05/29/25 16:59 05/29/25 21:16 05/29/25 22:18 Creatine Kinase 32118 U/L (46-171) Lactic Acid Level 1.5 mmol/L (0.4-2.0) Magnesium Level 3.3 mg/dL (1.6-2.6) Urine Color Yellow (Yellow) Urine Clarity Turbid (Clear) Urine pH 5.0 (5.0-9.0) Urine Specific [place] 1.018 (1.001-1.035) Urine Protein 1+ (Negative) Urine Ketones Trace (Negative) Urine Blood 3+ /uL (Negative) Urine Nitrite Negative (Negative) Urine Bilirubin 1+ (Negative) Urine Urobilinogen Normal mg/dL (Negative) Urine Leukocyte Esterase Negative /uL (Negative) Urine RBC 4 /hpf (0 - 3) Urine Microscopic WBC 3 /HPF (0-3) Urine Squamous Epithelial Cells Few /hpf (<5) Urine Amorphous Crystals Few /hpf (None Seen) Urine Bacteria None seen /hpf (None Seen) Urine Hyaline Casts Many /lpf (0 - 2) Urine Mucus Few (None Seen) Urine Glucose Normal mg/dL (Normal) Urine Opiates Screen Neg (NEGATIVE) Urine Fentanyl Screen Neg (NEGATIVE) Urine Barbiturates Screen Neg (NEGATIVE) Urine Phencyclidine Screen Neg (NEGATIVE) Urine Amphetamines Screen Pos (NEGATIVE) Urine Benzodiazepines Screen Pos (NEGATIVE) Urine Cocaine Screen Neg (NEGATIVE) Urine Cannabinoids Screen Neg (NEGATIVE) Test 05/29/25 23:49 05/30/25 02:35 Blood Gas Specimen Type Arterial Blood Gas Sample Site Right radial Blood Gas Patient Temperature 37.0 Arterial Blood Date Drawn [id number] Arterial Blood pH 7.273 (7.350-7.450) Arterial Blood Partial Pressure CO2 24.1 mmHg (35.0-48.0) Arterial Blood Partial Pressure O2 90.5 mmHg (83.0-108.0) Arterial Blood HCO3 10.9 mmol/L (21.0-28.0) Arterial Blood Oxygen Saturation 95.6 % (94.0-98.0) Arterial Blood Base Excess -14.1 mmol/L (-2.0-3.0) Arterial Blood Oxyhemoglobin 94.3 % (94.0-98.0) Arterial Blood Carboxyhemoglobin 1.0 % (0.5-1.5) Arterial Blood Methemoglobin 0.4 % (0.0-1.5) Arterial Blood Deoxyhemoglobin 4.3 % (0.0-5.0) Sriram Test Positive Blood Gas Total Hemoglobin 13.60 g/dL (13.5-17.5) Blood Gas Modality Room air FiO2 % 21.0 White Blood Count 18.1 10^3/uL (4.4-10.8) Red Blood Count 3.60 10^6/uL (4.5-5.90) Hemoglobin 12.1 g/dL (13.5-17.5) Hematocrit 35.2 % (41.0-53.0) Mean Corpuscular Volume 97.7 fL (80.0-100.0) Mean Corpuscular Hemoglobin 33.6 pg (28.0-32.0) Mean Corpuscular Hemoglobin Concent 34.4 g/dL (32.0-36.0) Red Cell Distribution Width 13.8 % (11.8-14.3) Platelet Count 238 10^3/uL (140-450) Mean Platelet Volume 8.2 fL (6.9-10.8) Neutrophils (%) (Auto) 86.5 % (37.0-80.0) Lymphocytes (%) (Auto) 8.9 % (10.0-50.0) Monocytes (%) (Auto) 4.5 % (0.0-12.0) Eosinophils (%) (Auto) 0.0 % (0.0-7.0) Basophils (%) (Auto) 0.1 % (0.0-2.0) Neutrophils # (Auto) 15.7 10 ^3/uL (1.6-8.6) Lymphocytes # (Auto) 1.6 10 ^3/uL (0.4-5.4) Monocytes # (Auto) 0.8 10 ^3/uL (0-1.3) Eosinophils # (Auto) 0 10 ^3/uL (0-0.8) Basophils # (Auto) 0 10 ^3/uL (0-0.2) Nucleated Red Blood Cells 0.1 % Sodium Level 145 mmol/L (136-145) Potassium Level 4.5 mmol/L (3.5-5.1) Chloride Level 115 mmol/L (98-107) Carbon Dioxide Level 13 mmol/L (20-31) Anion Gap 17 (5-15) Blood Urea Nitrogen 94 mg/dL (9-23) Creatinine 3.32 mg/dL (0.700-1.30) Glomerular Filtration Rate Calc 19 mL/min (>90) BUN/Creatinine Ratio 28.3 (10.0-20.0) Serum Glucose 82 mg/dL (74-106) Calcium Level 6.1 mg/dL (8.7-10.4) Total Bilirubin 0.3 mg/dL (0.2-1.0) Aspartate Amino Transf (AST/SGOT) 206 U/L (13-40) Alanine Aminotransferase (ALT/SGPT) 41 U/L (7-40) Alkaline Phosphatase 73 U/L (46-116) Total Protein 5.9 g/dL (5.7-8.2) Albumin 3.4 g/dL (3.2-4.8) Appetite: Fair Appearance: Stated age, Disheveled Psychomotor activity: Restless Behavioral: Cooperative Eye contact: Appropriate Speech: Rapid, Dysarthric, Confused Affect: Mood Congruent, Hypermanic Mood: Anxious Thought processes: Tangential Thought content: Paranoid Suicidal ideations: Absent Homicidal ideations: Absent Orientation: Person, Place, Time, Confused Memory intact: Recent Intellect: Average Concentration: Limited Attention: Limited Judgement: Marginal Insight: Limited Vitals Vital Signs Date Time Temp Pulse Resp B/P (MAP) Pulse Ox O2 Delivery O2 Flow Rate FiO2 05/30/25 08:00 103 05/30/25 08:00 98.0 23 132/63 (86) 98 98.0 05/30/25 07:50 Room Air* 0 21 Current medications Current Medications Medications Dose Ordered Sig/Don Route Start Time Stop Time Status Last Admin Dose Admin Cefepime HCl 50 ml @ 12.5 mls/hr DAILY IV 05/30/25 10:00 Ondansetron HCl 4 mg Q4HP PRN IV 05/29/25 23:30 Nitroglycerin 0.4 mg Q5MINP PRN SL 05/29/25 23:30 Morphine Sulfate 2 mg Q30M PRN IV 05/29/25 23:30 Pantoprazole Sodium 40 mg DAILY IV 05/30/25 10:00 Diagnosis: unspecified psychosis r/o substance-induced Alcohol abuse disorder Amphetamine abuse disorder Plan : This is a 71-year-old male with no prior psychiatric history presents here for AMS, reporting some paranoid thoughts and found to have stimulant in his system and alcohol abuse history Patient also denies suicidal/homicidal ideation/AVH. Per no violent or psychiatric history Recommend Risperdal 1mg po bid Re-eval Am V discharge home to family, also pending medical clearance here History of Present Illness Reason for Consult : Patient here for altered mental status HPI : This is a 71-year-old male with unknown prior psychiatric history, presents here for altered mental status after neighbors called due to foul language. Patient is evaluated via telepsychiatry here. On exam, speech is very difficult to understand and this has been the case since his stroke per report. Patient reports he is here because of pain and ball in his stomach. He reports that is "unstable." He reports he and had an argument and she had weapons, including a gun and a rifle. He reports said he was a terrorist, he was later arrested and went to custodial x6 mos. When asked if uses any drugs, denies saying put it in his food. Patient denies auditory/visual hallucinations. He denies suicidal/homicidal ideation. He does appear to have paranoid thoughts. He denies any problems with sleep. He is asking for food multiple times during interview. Per Anna, patient has history of alcohol abuse and has been arrested multiple times for drinking excessively. She is not aware of other substance use. She denies any psychiatric history or violence. She reports this is his baseline for many years. Past Psychiatric History : Patient denies any history. he denies prior admissions, holds, or suicide attempts. He denies any prior psychotropic medications or outpatient mental health services Past Medical History : History of fall in 2016 and Stroke per Social History : He lives with of 40 years, not employed. reports excessive alcohol use. Patient is positive for Amphetamines. CURT CHAO DNP May 30, 2025 10:21
--- NOTE | 2025-05-30 10:48 | DVHINCON2 ---
Date of service: May 30, 2025 Referring Physician Nain Saravia nurse practitioner Reason for Consultation Acute kidney injury History of Present Illness Patient is a 71-year-old male with unknown past medical history is admitted for agitation and altered level of consciousness. On admission patient found to have elevated BUN creatinine nephrology is consulted for acute kidney injury Past Medical History Unknown Past Surgical History Unknown Allergies: Coded Allergies: NO KNOWN ALLERGIES (Unverified , 05/29/25) Current Medications Current Medications Medications (Trade) Dose Ordered Sig/Don Route PRN Reason Start Time Stop Time Status Last Admin Magnesium Sulfate/ Dextrose 100 ml @ 100 mls/hr Q1H IV 05/29/25 22:30 05/30/25 00:29 DC 05/30/25 00:29 Cefepime HCl 50 ml @ 12.5 mls/hr DAILY IV 05/30/25 10:00 05/30/25 10:06 Ondansetron HCl (Zofran) 4 mg Q4HP PRN IV NAUSEA / VOMITING 05/29/25 23:30 Nitroglycerin (Ntrostat Sublingual) 0.4 mg Q5MINP PRN SL FOR CHEST PAIN 05/29/25 23:30 Morphine Sulfate 2 mg Q30M PRN IV FOR CHEST PAIN 05/29/25 23:30 Pantoprazole Sodium (Protonix) 40 mg DAILY IV 05/30/25 10:00 05/30/25 10:06 Calcium Gluconate/ Sodium Chloride 50 ml @ 100 mls/hr Q30M IV 05/30/25 03:30 05/30/25 04:29 DC 05/30/25 05:24 Sodium Bicarbonate 100 ml/Sodium Chloride 1,100 ml @ 100 mls/hr Q11H IV 05/30/25 10:45 05/30/25 11:58 Risperidone (RisperDAL TABLET) 1 mg BID PO 05/30/25 22:00 Review of Systems Can't be obtained due to ALOC H&P Exam Vital Signs/I&O Vital Sign Date Time Temp Pulse Resp B/P (MAP) Pulse Ox O2 Delivery O2 Flow Rate FiO2 05/30/25 14:00 76 18 145/37 (73) 96 05/30/25 12:00 98.8 98.8 05/30/25 07:50 Room Air* 0 21 Intake and Output 05/29/25 05/30/25 19:00 07:00 Intake Total 2150 ml Output Total 400 ml Balance 1750 ml Intake IV Total 2150 ml Output Urine Total 400 ml Physical Exam Patient is awake but confused Lung: clear b/l COR: RRR GI: BS+ : Francis's catheter Ext: no CCE Neuo patient is confused Labs/Diagnostic Data Labs/Diagnostic Data Laboratory Tests Test 05/30/25 14:08 05/30/25 02:35 05/29/25 23:49 05/29/25 22:18 Range/Units Urine Color Light-yellow Yellow Yellow Urine Clarity Clear Turbid H Clear Urine pH 5.5 5.0 5.0-9.0 Urine Specific [place] 1.017 1.018 1.001-1.035 Urine Protein 1+ H 1+ H Negative Urine Ketones 1+ H Trace Negative Urine Blood 3+ H 3+ H Negative /uL Urine Nitrite Negative Negative Negative Urine Bilirubin Negative 1+ Negative Urine Urobilinogen Normal Normal Negative mg/dL Urine Leukocyte Esterase Negative Negative Negative /uL Urine RBC 3 4 0 - 3 /hpf Urine Microscopic WBC 2 3 0-3 /HPF Urine Squamous Epithelial Cells Few Few <5 /hpf Urine Bacteria Few H None seen None Seen /hpf Urine Osmolality 590 mOsm/kg Urine Creatinine 61.92 30.0-125.0 mg/dL Urine Protein/Creatinine Ratio 1.13 Urine Sodium 63 40-220 mmol/L Urine Glucose Normal Normal Normal mg/dL Urine Total Protein 69.7 H 1-14 mg/dL White Blood Count 18.1 H 4.4-10.8 10^3/uL Red Blood Count 3.60 L 4.5-5.90 10^6/uL Hemoglobin 12.1 L 13.5-17.5 g/dL Hematocrit 35.2 #L 41.0-53.0 % Mean Corpuscular Volume 97.7 80.0-100.0 fL Mean Corpuscular Hemoglobin 33.6 H 28.0-32.0 pg Mean Corpuscular Hemoglobin Concent 34.4 32.0-36.0 g/dL Red Cell Distribution Width 13.8 11.8-14.3 % Platelet Count 238 140-450 10^3/uL Mean Platelet Volume 8.2 6.9-10.8 fL Neutrophils (%) (Auto) 86.5 H 37.0-80.0 % Lymphocytes (%) (Auto) 8.9 L 10.0-50.0 % Monocytes (%) (Auto) 4.5 0.0-12.0 % Eosinophils (%) (Auto) 0.0 0.0-7.0 % Basophils (%) (Auto) 0.1 0.0-2.0 % Neutrophils # (Auto) 15.7 H 1.6-8.6 10 ^3/uL Lymphocytes # (Auto) 1.6 0.4-5.4 10 ^3/uL Monocytes # (Auto) 0.8 0-1.3 10 ^3/uL Eosinophils # (Auto) 0 0-0.8 10 ^3/uL Basophils # (Auto) 0 0-0.2 10 ^3/uL Nucleated Red Blood Cells 0.1 % Sodium Level 145 136-145 mmol/L Potassium Level 4.5 3.5-5.1 mmol/L Chloride Level 115 H 98-107 mmol/L Carbon Dioxide Level 13 L 20-31 mmol/L Anion Gap 17 H 5-15 Blood Urea Nitrogen 94 #*H 9-23 mg/dL Creatinine 3.32 H 0.700-1.30 mg/dL Glomerular Filtration Rate Calc 19 >90 mL/min BUN/Creatinine Ratio 28.3 H 10.0-20.0 Serum Glucose 82 74-106 mg/dL Calcium Level 6.1 L 8.7-10.4 mg/dL Phosphorus Level 6.9 H 2.4-5.1 mg/dL Magnesium Level 3.3 H 1.6-2.6 mg/dL Total Bilirubin 0.3 0.2-1.0 mg/dL Aspartate Amino Transferase (AST) 206 H 13-40 U/L Alanine Aminotransferase (ALT) 41 H 7-40 U/L Alkaline Phosphatase 73 46-116 U/L B-Type Natriuretic Peptide 66.48 0-100 pg/mL Total Protein 5.9 5.7-8.2 g/dL Albumin 3.4 3.2-4.8 g/dL Vitamin D 25-Hydroxy 16.9 L 30.0-100 ng/mL Parathyroid Hormone (Intact) 260.3 H 18.4-80.1 pg/mL Hepatitis B Surface Antigen Negative Negative Hepatitis C Antibody Negative Negative Blood Gas Specimen Type Arterial Blood Gas Sample Site Right radial Blood Gas Patient Temperature 37.0 Arterial Blood Date Drawn [id number] Arterial Blood pH 7.273 L 7.350-7.450 Arterial Blood Partial Pressure CO2 24.1 L 35.0-48.0 mmHg Arterial Blood Partial Pressure O2 90.5 83.0-108.0 mmHg Arterial Blood HCO3 10.9 L 21.0-28.0 mmol/L Arterial Blood Oxygen Saturation 95.6 94.0-98.0 % Arterial Blood Base Excess -14.1 L -2.0-3.0 mmol/L Arterial Blood Oxyhemoglobin 94.3 94.0-98.0 % Arterial Blood Carboxyhemoglobin 1.0 0.5-1.5 % Arterial Blood Methemoglobin 0.4 0.0-1.5 % Arterial Blood Deoxyhemoglobin 4.3 0.0-5.0 % Sriram Test Positive Blood Gas Total Hemoglobin 13.60 13.5-17.5 g/dL Blood Gas Modality Room air FiO2 % 21.0 Urine Amorphous Crystals Few None Seen /hpf Urine Hyaline Casts Many 0 - 2 /lpf Urine Mucus Few None Seen Urine Opiates Screen Neg NEGATIVE Urine Fentanyl Screen Neg NEGATIVE Urine Barbiturates Screen Neg NEGATIVE Urine Phencyclidine Screen Neg NEGATIVE Urine Amphetamines Screen Pos NEGATIVE Urine Benzodiazepines Screen Pos NEGATIVE Urine Cocaine Screen Neg NEGATIVE Urine Cannabinoids Screen Neg NEGATIVE Test 05/29/25 21:16 05/29/25 16:59 05/29/25 16:19 Range/Units White Blood Count 23.0 H 24.5 H 4.4-10.8 10^3/uL Red Blood Count 4.22 L 4.54 4.5-5.90 10^6/uL Hemoglobin 13.6 14.9 13.5-17.5 g/dL Hematocrit 41.0 44.5 41.0-53.0 % Mean Corpuscular Volume 97.3 97.9 80.0-100.0 fL Mean Corpuscular Hemoglobin 32.3 H 32.8 H 28.0-32.0 pg Mean Corpuscular Hemoglobin Concent 33.2 33.6 32.0-36.0 g/dL Red Cell Distribution Width 13.9 13.6 11.8-14.3 % Platelet Count 282 322 140-450 10^3/uL Mean Platelet Volume 8.1 8.1 6.9-10.8 fL Neutrophils (%) (Auto) 87.7 H 89.9 H 37.0-80.0 % Lymphocytes (%) (Auto) 5.6 L 3.9 L 10.0-50.0 % Monocytes (%) (Auto) 6.5 5.7 0.0-12.0 % Eosinophils (%) (Auto) 0.0 0.0 0.0-7.0 % Basophils (%) (Auto) 0.2 0.5 0.0-2.0 % Neutrophils # (Auto) 20.2 H 22.0 H 1.6-8.6 10 ^3/uL Lymphocytes # (Auto) 1.3 1.0 0.4-5.4 10 ^3/uL Monocytes # (Auto) 1.5 H 1.4 H 0-1.3 10 ^3/uL Eosinophils # (Auto) 0 0 0-0.8 10 ^3/uL Basophils # (Auto) 0 0.1 0-0.2 10 ^3/uL Nucleated Red Blood Cells 0.0 0.0 % Sodium Level 142 144 136-145 mmol/L Potassium Level 4.4 4.7 3.5-5.1 mmol/L Chloride Level 108 H 106 98-107 mmol/L Carbon Dioxide Level 13 L 15 L 20-31 mmol/L Anion Gap 21 H 23 H 5-15 Blood Urea Nitrogen 108 #*H 95 *H 9-23 mg/dL Creatinine 4.46 H 4.20 H 0.700-1.30 mg/dL Glomerular Filtration Rate Calc 14 15 >90 mL/min BUN/Creatinine Ratio 24.2 H 22.6 H 10.0-20.0 Serum Glucose 100 70 L 74-106 mg/dL Calcium Level 7.2 L 7.8 L 8.7-10.4 mg/dL Magnesium Level 3.3 H 1.6-2.6 mg/dL Total Bilirubin 0.4 0.6 0.2-1.0 mg/dL Aspartate Amino Transferase (AST) 261 H 276 H 13-40 U/L Alanine Aminotransferase (ALT) 49 H 52 H 7-40 U/L Alkaline Phosphatase 94 109 46-116 U/L Total Protein 7.5 8.3 H 5.7-8.2 g/dL Albumin 4.3 4.9 H 3.2-4.8 g/dL Lactic Acid Level 1.5 0.4-2.0 mmol/L Creatine Kinase 76603 H 46-171 U/L Assessment Acute kidney injury superimposed Chronic Kidney Disease secondary hemodynamic mediated Drug intoxication Encephalopathy Acute rhabdomyolysis Sepsis Polysubstance abuse Metabolic acidosis Dehydration Recommendations Closely monitor fluid and electrolytes Avoid nephrotoxic medications Francis catheter Strict I&Os IVF 1/2 NS with 100 mEq sodium bicarb at 100 cc/hour Check urine electrolytes and protein excretion Check kidney ultrasound We will continue to follow Patient seen and examined by myself in the ER. I discussed my plan of care with the primary nurse at the bedside I would like thank Nain for the consult, will follow up Plan discussed with: Patient, Other (Nurse) SANDRA GARDNER MD May 30, 2025 10:48
[2025-05-30 11:23] LABS: Magnesium 3.3 mg/dL (1.6-2.6)
[2025-05-30] MEDS: SODIUM BICARB 50mEq/50ml Vial 100 ML in SOD CHL 0.45% 1,000 ML IV SCH (11:58)
--- NOTE | 2025-05-30 12:17 | DVH ---
RENAL ULTRASOUND History: ebony Comparison: None Technique: Multiple real-time sonographic images of the kidney and bladder were obtained in conjunction with Doppler imaging. Findings: The right kidney measures 9.8 cm and demonstrates no evidence of hydronephrosis, perinephric fluid collection, or shadowing stone. The left kidney measures 9.5 cm and demonstrates no evidence of hydronephrosis, perinephric fluid collection, or shadowing stone. Urinary bladder: Prevoid urinary bladder volume is 219 mL. Right ureteral jet nonvisualized. Prostate volume 71 cc. Impression: No sonographic evidence for hydronephrosis. Prostate enlarged with volume of 71 cc. Right ureteral jet not visualized.
[2025-05-30 12:41] LABS: Hepatitis B Surface Antigen Negative (Negative)
[2025-05-30 13:54] LABS: Hepatitis C Antibody Negative (Negative)
[2025-05-30 15:00] LABS: Urine Protein, UAD 1+ (Negative)
[2025-05-30 15:05] LABS: Protein, Urine 69.7 mg/dL (1-14)
--- NOTE | 2025-05-30 16:22 | DVHPN2 ---
Subjective Patient denies any symptoms at this time Reviewed: Care Plan, H&P, Labs, Medications Changes from previous H/P or p: No Changes General: Per HPI Objective Vitals Vital Signs Date Time Temp Pulse Resp B/P (MAP) Pulse Ox O2 Delivery O2 Flow Rate FiO2 05/30/25 16:00 95 05/30/25 14:00 18 145/37 (73) 96 05/30/25 12:00 98.8 98.8 05/30/25 07:50 Room Air* 0 21 Intake/Output Intake and Output 05/30/25 07:00 Intake Total 2150 ml Output Total 400 ml Balance 1750 ml Intake IV Total 2150 ml Output Urine Total 400 ml General Appearance: Alert, mild distress, Other (Oriented x2. Encephalopathic) HEENT: Atraumatic, PERRLA Lungs: Clear to auscultation, Normal air movement Cardiovascular: Normal S1, Normal S2 Abdomen: Normal bowel sounds, Soft, No tenderness Musculoskeletal: Normal sensory function, Normal motor function Skin: Dry, Intact Psych/Mental Status: Mood NL Medications Current Medications Medications Dose Ordered Sig/Don Route Start Time Stop Time Status Last Admin Dose Admin Cefepime HCl 50 ml @ 12.5 mls/hr DAILY IV 05/30/25 10:00 05/30/25 10:06 12.5 MLS/HR Ondansetron HCl 4 mg Q4HP PRN IV 05/29/25 23:30 Nitroglycerin 0.4 mg Q5MINP PRN SL 05/29/25 23:30 Morphine Sulfate 2 mg Q30M PRN IV 05/29/25 23:30 Pantoprazole Sodium 40 mg DAILY IV 05/30/25 10:00 05/30/25 10:06 40 MG Sodium Bicarbonate 100 ml/Sodium Chloride 1,100 ml @ 100 mls/hr Q11H IV 05/30/25 10:45 05/30/25 11:58 100 MLS/HR Risperidone 1 mg BID PO 05/30/25 22:00 Laboratory Results Laboratory Tests 05/30/25 02:35 Chemistry Test 05/29/25 21:16 05/30/25 02:35 Albumin 4.3 g/dL (3.2-4.8) 3.4 g/dL (3.2-4.8) Calcium Level 7.2 mg/dL (8.7-10.4) L 6.1 mg/dL (8.7-10.4) L Magnesium Level 3.3 mg/dL (1.6-2.6) H 3.3 mg/dL (1.6-2.6) H Total Protein 7.5 g/dL (5.7-8.2) 5.9 g/dL (5.7-8.2) Phosphorus Level 6.9 mg/dL (2.4-5.1) H Cardiac Markers Test 05/30/25 02:35 B-Type Natriuretic Peptide 66.48 pg/mL (0-100) LFT Test 05/29/25 21:16 05/30/25 02:35 Alanine Aminotransferase (ALT) 49 U/L (7-40) H 41 U/L (7-40) H Alkaline Phosphatase 94 U/L (46-116) 73 U/L (46-116) Aspartate Amino Transferase (AST) 261 U/L (13-40) H 206 U/L (13-40) H Total Bilirubin 0.4 mg/dL (0.2-1.0) 0.3 mg/dL (0.2-1.0) Urinalysis Test 05/29/25 22:18 05/30/25 14:08 Urine Amorphous Crystals Few /hpf (None Seen) Urine Hyaline Casts Many /lpf (0 - 2) Urine Mucus Few (None Seen) Urine Color Light-yellow (Yellow) Urine Clarity Clear (Clear) Urine pH 5.5 (5.0-9.0) Urine Specific [place] 1.017 (1.001-1.035) Urine Protein 1+ (Negative) H Urine Ketones 1+ (Negative) H Urine Blood 3+ /uL (Negative) H Urine Nitrite Negative (Negative) Urine Bilirubin Negative (Negative) Urine Urobilinogen Normal mg/dL (Negative) Urine Leukocyte Esterase Negative /uL (Negative) Urine RBC 3 /hpf (0 - 3) Urine Microscopic WBC 2 /HPF (0-3) Urine Squamous Epithelial Cells Few /hpf (<5) Urine Bacteria Few /hpf (None Seen) H Urine Osmolality 590 mOsm/kg Urine Creatinine 61.92 mg/dL (30.0-125.0) Urine Protein/Creatinine Ratio 1.13 Urine Sodium 63 mmol/L (40-220) Urine Glucose Normal mg/dL (Normal) Urine Total Protein 69.7 mg/dL (1-14) H Blood Gas Results Test 05/29/25 23:49 Arterial Blood pH 7.273 (7.350-7.450) FiO2 % 21.0 Labs and/or images reviewed: Labs reviewed by me, Image(s) reviewed by me Assessment/Plan Assessment/Plan Impression: -toxic metabolic encephalopathy -polysubstance abuse with alcohol and amphetamines -acute kidney injury, vasomotor nephropathy -rhabdomyolysis -sirs, rule out sepsis -rule out underlying psychiatric disorder Plan: -continue IV hydration -nephrology consultation: Recommendations reviewed -renal ultrasound reviewed -psychiatry consultation: Recommendations reviewed. Risperidone 1 mg p.o. b.i.d. started -repeat labs in a.m. -transferred to telemetry floor Total time spent with patient discussing and formulating plan of care: 35 minutes. This medical document was created using an electronic medical record system with [employer] dictation system. Although this document has been carefully reviewed, there may still be some phonetic and typographical errors. These areas are purely typographical due to imperfections of the software programs, and do not reflect any compromise in the patient's medical care. Plan discussed with: Patient, Other (RN) My Orders Orders - LUCERO RICHARD NP Procedure Category Date Status Time Risperidone Tablet PHA 05/30/25 In Process (Risperdal Tablet) 22:00 Complete Blood Count LAB 05/31/25 Verified 04:00 Comprehensive LAB 05/31/25 Verified Metabolic Panel 04:00 Date of Service: May 30, 2025 Billing Provider: LUCERO RICHARD NP Common Visit Codes: [id number] INP/OBS CARE(HIGH) LUCERO RICHARD NP May 30, 2025 16:22
[2025-05-30 17:38] VITALS: BP 145/79; PULSE 87; RESP 17; TEMP 99.3; O2SAT 98
[2025-05-30 18:41] VITALS: BP 145/79; PULSE 87; RESP 17; TEMP 99.3; O2SAT 98
[2025-05-30 20:00] VITALS: PULSE 82
[2025-05-30 21:00] VITALS: BP 137/81; PULSE 84; RESP 17; TEMP 99.2; O2SAT 96
[2025-05-30] MEDS: risperiDONE 1 MG TAB PO SCH (21:42)
[2025-05-31 01:00] VITALS: BP 149/79; PULSE 80; RESP 18; TEMP 98.5; O2SAT 95
[2025-05-31 05:41] LABS: Hematocrit 39.8 % (41.0-53.0); Hemoglobin 13.5 g/dL (13.5-17.5); Mean Corpuscular Hemoglobin 32.7 pg (28.0-32.0); Mean Corpuscular Volume 96.1 fL (80.0-100.0); Nucleated Red Blood Cells % 0.0 %
[2025-05-31 06:01] LABS: Albumin 3.6 g/dL (3.2-4.8); Alkaline Phosphatase 78 U/L (46-116); Anion Gap 12 (5-15); BUN/Creatinine Ratio 35.4 (10.0-20.0); Bilirubin, Total 0.8 mg/dL (0.2-1.0); Carbon Dioxide 23 mmol/L (20-31); Glucose 93 mg/dL (74-106); Total Protein 6.3 g/dL (5.7-8.2)
[2025-05-31 06:03] LABS: Alanine Aminotransferase 48 U/L (7-40); Blood Urea Nitrogen 35 mg/dL (9-23); Calcium 8.0 mg/dL (8.7-10.4); Chloride 115 mmol/L (98-107); Potassium 3.5 mmol/L (3.5-5.1); Sodium 150 mmol/L (136-145)
[2025-05-31 08:00] VITALS: PULSE 90
--- NOTE | 2025-05-31 10:00 | DVHDS2 ---
Discharge Summary Date of Admission May 29, 2025 at 23:30 Date of Discharge: May 31, 2025 Admitting Diagnosis Metabolic encephalopathy Labs/Diagnostic Data: Laboratory Results Test 05/31/25 04:46 05/30/25 14:08 05/30/25 02:35 05/29/25 23:49 White Blood Count 13.0 10^3/uL (4.4-10.8) Red Blood Count 4.14 10^6/uL (4.5-5.90) Hemoglobin 13.5 g/dL (13.5-17.5) Hematocrit 39.8 % (41.0-53.0) Mean Corpuscular Volume 96.1 fL (80.0-100.0) Mean Corpuscular Hemoglobin 32.7 pg (28.0-32.0) Mean Corpuscular Hemoglobin Concent 34.0 g/dL (32.0-36.0) Red Cell Distribution Width 13.7 % (11.8-14.3) Platelet Count 229 10^3/uL (140-450) Mean Platelet Volume 8.4 fL (6.9-10.8) Neutrophils (%) (Auto) 80.1 % (37.0-80.0) Lymphocytes (%) (Auto) 11.8 % (10.0-50.0) Monocytes (%) (Auto) 6.7 % (0.0-12.0) Eosinophils (%) (Auto) 1.2 % (0.0-7.0) Basophils (%) (Auto) 0.2 % (0.0-2.0) Neutrophils # (Auto) 10.4 10 ^3/uL (1.6-8.6) Lymphocytes # (Auto) 1.5 10 ^3/uL (0.4-5.4) Monocytes # (Auto) 0.9 10 ^3/uL (0-1.3) Eosinophils # (Auto) 0.2 10 ^3/uL (0-0.8) Basophils # (Auto) 0 10 ^3/uL (0-0.2) Nucleated Red Blood Cells 0.0 % Sodium Level 150 mmol/L (136-145) Potassium Level 3.5 mmol/L (3.5-5.1) Chloride Level 115 mmol/L (98-107) Carbon Dioxide Level 23 mmol/L (20-31) Anion Gap 12 (5-15) Blood Urea Nitrogen 35 mg/dL (9-23) Creatinine 0.99 mg/dL (0.700-1.30) Glomerular Filtration Rate Calc 81 mL/min (>90) BUN/Creatinine Ratio 35.4 (10.0-20.0) Serum Glucose 93 mg/dL (74-106) Calcium Level 8.0 mg/dL (8.7-10.4) Total Bilirubin 0.8 mg/dL (0.2-1.0) Aspartate Amino Transferase (AST) 171 U/L (13-40) Alanine Aminotransferase (ALT) 48 U/L (7-40) Alkaline Phosphatase 78 U/L (46-116) Total Protein 6.3 g/dL (5.7-8.2) Albumin 3.6 g/dL (3.2-4.8) Urine Color Light-yellow (Yellow) Urine Clarity Clear (Clear) Urine pH 5.5 (5.0-9.0) Urine Specific [place] 1.017 (1.001-1.035) Urine Protein 1+ (Negative) Urine Ketones 1+ (Negative) Urine Blood 3+ /uL (Negative) Urine Nitrite Negative (Negative) Urine Bilirubin Negative (Negative) Urine Urobilinogen Normal mg/dL (Negative) Urine Leukocyte Esterase Negative /uL (Negative) Urine RBC 3 /hpf (0 - 3) Urine Microscopic WBC 2 /HPF (0-3) Urine Squamous Epithelial Cells Few /hpf (<5) Urine Bacteria Few /hpf (None Seen) Urine Osmolality 590 mOsm/kg Urine Creatinine 61.92 mg/dL (30.0-125.0) Urine Protein/Creatinine Ratio 1.13 Urine Sodium 63 mmol/L (40-220) Urine Glucose Normal mg/dL (Normal) Urine Total Protein 69.7 mg/dL (1-14) Phosphorus Level 6.9 mg/dL (2.4-5.1) Magnesium Level 3.3 mg/dL (1.6-2.6) B-Type Natriuretic Peptide 66.48 pg/mL (0-100) Vitamin D 25-Hydroxy 16.9 ng/mL (30.0-100) Parathyroid Hormone (Intact) 260.3 pg/mL (18.4-80.1) Hepatitis B Surface Antigen Negative (Negative) Hepatitis C Antibody Negative (Negative) Blood Gas Specimen Type Arterial Blood Gas Sample Site Right radial Blood Gas Patient Temperature 37.0 Arterial Blood Date Drawn [id number] Arterial Blood pH 7.273 (7.350-7.450) Arterial Blood Partial Pressure CO2 24.1 mmHg (35.0-48.0) Arterial Blood Partial Pressure O2 90.5 mmHg (83.0-108.0) Arterial Blood HCO3 10.9 mmol/L (21.0-28.0) Arterial Blood Oxygen Saturation 95.6 % (94.0-98.0) Arterial Blood Base Excess -14.1 mmol/L (-2.0-3.0) Arterial Blood Oxyhemoglobin 94.3 % (94.0-98.0) Arterial Blood Carboxyhemoglobin 1.0 % (0.5-1.5) Arterial Blood Methemoglobin 0.4 % (0.0-1.5) Arterial Blood Deoxyhemoglobin 4.3 % (0.0-5.0) Sriram Test Positive Blood Gas Total Hemoglobin 13.60 g/dL (13.5-17.5) Blood Gas Modality Room air FiO2 % 21.0 Test 05/29/25 22:18 05/29/25 16:59 Urine Amorphous Crystals Few /hpf (None Seen) Urine Hyaline Casts Many /lpf (0 - 2) Urine Mucus Few (None Seen) Urine Opiates Screen Neg (NEGATIVE) Urine Fentanyl Screen Neg (NEGATIVE) Urine Barbiturates Screen Neg (NEGATIVE) Urine Phencyclidine Screen Neg (NEGATIVE) Urine Amphetamines Screen Pos (NEGATIVE) Urine Benzodiazepines Screen Pos (NEGATIVE) Urine Cocaine Screen Neg (NEGATIVE) Urine Cannabinoids Screen Neg (NEGATIVE) Lactic Acid Level 1.5 mmol/L (0.4-2.0) Other Laboratory Tests 05/31/25 04:46 Brief Hx & Hospital Course: History of Present Illness 71-year-old male presents for evaluation of altered mental status. Patient is neighbors called police due to patient disturbing with foul language. EMS was called due to patient's erratic behavior. Currently patient is alert but not answering questions. No slurred speech or unilateral weakness noted. Course of hospitalization: Patient was found to be positive for methamphetamines. BMP reveals acute kidney injury, which improved with IV hydration . Patient was also found to be in rhabdomyolysis. Nephrology consultation was obtained. Recommendations reviewed. Psychiatric evaluation also performed. Patient has noted delusions, illusions at time of admission. Both issues have improved. Patient has been started on risperidone 1 mg p.o. b.i.d.. Given patient's improvement with mental status as well as renal function and decrease CPK, patient will be deemed stable to be transferred to [facility]. This was discussed with the patient as well. Physical examination General: Alert and Oriented x2. No acute distress. Well-nourished. Eyes: EOMI. Anicteric. HENT: Moist mucous membranes. Lungs: Clear to auscultation bilaterally. No accessory muscle use. Cardiovascular: Regular rate and rhythm. No murmur. No JVD. Abdomen: Soft, non-tender and non-distended. No palpable masses. Extremities: No edema. Non-tender. Skin: No rashes or lesions. Warm. Neurologic: No focal neurological deficits. CN II-XII grossly intact, but not individually tested. Psychiatric: Cooperative. Appropriate mood and affect. Total time spent with patient discussing and formulating plan of care: 35 minutes. This medical document was created using an electronic medical record system with [employer] dictation system. Although this document has been carefully reviewed, there may still be some phonetic and typographical errors. These areas are purely typographical due to imperfections of the software programs, and do not reflect any compromise in the patient's medical care. Consults/Reason for consult Nephrology: Acute kidney injury Psychiatry: Altered mental status Condition at Discharge: Fair Final Diagnosis/Problems List Toxic metabolic encephalopathy -polysubstance abuse with alcohol and amphetamines -acute kidney injury, vasomotor nephropathy -rhabdomyolysis -sirs, rule out sepsis -rule out underlying psychiatric disorder Discharge Disposition: Acute Care Facility Discharge Instruct/Medications Diet: Regular Activity: No Restrictions, As Tolerated Follow Up/Referral: Accepting provider Medications: Refer to medication reconciliation form 36 Discharge Statement: "Patient was advised to return to the ER or call 911 if any headaches, dizziness, shortness of breath, chest pain, abdominal pain, bleeding, fevers, or worsening of medical condition. Patient was counseled about treatment plan, medications, possible side effects, patientverbalized understanding. All questions were answered to the best of my ability. This discharge took greater then 30 minutes in planning, reviewing documentation, counseling the patient, and discussing with other team members." ASSESSMENT ASSESSMENT Assessment Date of Service: May 31, 2025 Billing Provider: LUCERO RICHARD NP Common Visit Codes: [id number] DISCH DAY >30min LUCERO RICHARD NP May 31, 2025 10:00
[2025-05-31 13:00] VITALS: BP 150/79; PULSE 83; RESP 20; TEMP 98.5; O2SAT 98
--- NOTE | 2025-05-31 14:46 | DVHPN2 ---
Progress Note Date Seen: May 31, 2025 Medical Necessity Reason Pt with a Central, PICC or Fol: No Subjective Patient reports: No new complaints Other Systems: Patient seen and examined by myself today in follow-up Objective vital signs Vital Sign Date Time Temp Pulse Resp B/P (MAP) Pulse Ox O2 Delivery O2 Flow Rate FiO2 05/31/25 13:00 98.5 83 20 150/79 (102) 98 98.5 05/31/25 08:10 Room Air* 0 21 Total Intake and Output 05/30/25 05/30/25 05/31/25 15:00 23:00 07:00 Intake Total 50 ml 700 ml 100 ml Output Total 400 ml Balance 50 ml 700 ml -300 ml medications Current Medications Medications Dose Ordered Sig/Don Route Start Time Stop Time Status Last Admin Dose Admin Cefepime HCl 50 ml @ 12.5 mls/hr DAILY IV 05/30/25 10:00 05/31/25 09:15 Ondansetron HCl 4 mg Q4HP PRN IV 05/29/25 23:30 Nitroglycerin 0.4 mg Q5MINP PRN SL 05/29/25 23:30 Morphine Sulfate 2 mg Q30M PRN IV 05/29/25 23:30 Pantoprazole Sodium 40 mg DAILY IV 05/30/25 10:00 05/31/25 09:15 Sodium Bicarbonate 100 ml/Sodium Chloride 1,100 ml @ 100 mls/hr Q11H IV 05/30/25 10:45 05/31/25 12:18 Risperidone 1 mg BID PO 05/30/25 22:00 05/31/25 09:15 Examination: LUNGS:Normal, CVS:Normal, MSK:Normal laboratory and microbiology Laboratory Tests 05/31/25 04:46 Test 05/31/25 04:46 Range/Units Serum Glucose 93 74-106 mg/dL Microbiology Date/Time Source Procedure Growth Status 05/29/25 16:59 Blood Blood Culture - Preliminary NO GROWTH AFTER 24 HOURS OF INCUBATION. Resulted Problem List/Assessment/Plan Problem List/Assessment/Plan Acute kidney injury superimposed Chronic Kidney Disease secondary hemodynamic mediated, FeNa > 2% Drug intoxication Encephalopathy Acute rhabdomyolysis Sepsis Polysubstance abuse Metabolic acidosis Dehydration BPH Hypernatremia due to dehydration Recommendations Kidney function is improving No urine output charted Francis catheter Strict I&Os IVF D5W with 20 mEq KCL at 100 cc/hour kidney ultrasound reported enlarged prostate but no hydronephrosis We will continue to follow Plan discussed with: Patient SANDRA GARDNER MD May 31, 2025 14:45
[2025-05-31] MEDS: POTASSIUM CHLORIDE 20 MEQ in D5W 5% 1,000 ML IV SCH (15:46)
[2025-05-31 17:00] VITALS: BP 147/83; PULSE 79; RESP 20; TEMP 98.9; O2SAT 97
[2025-05-31 20:00] VITALS: PULSE 89
[2025-05-31 21:00] VITALS: BP 152/87; PULSE 73; RESP 17; TEMP 97.6; O2SAT 93
[2025-06-01] VITALS (8 sets, daily range): BP systolic 129–179; BP diastolic 59–96; PULSE 78–91; RESP 17–20; TEMP 97.7–98.6; O2SAT 95–100
[2025-06-01 06:18] LABS: Alanine Aminotransferase 47 U/L (7-40); Albumin 3.7 g/dL (3.2-4.8); Alkaline Phosphatase 79 U/L (46-116); Anion Gap 10 (5-15); BUN/Creatinine Ratio 20.0 (10.0-20.0); Blood Urea Nitrogen 16 mg/dL (9-23); Calcium 8.5 mg/dL (8.7-10.4); Carbon Dioxide 29 mmol/L (20-31); Chloride 109 mmol/L (98-107); Glucose 113 mg/dL (74-106); Potassium 4.0 mmol/L (3.5-5.1); Sodium 148 mmol/L (136-145); Total Protein 6.6 g/dL (5.7-8.2)
[2025-06-01 06:19] LABS: Bilirubin, Total 0.9 mg/dL (0.2-1.0)
[2025-06-01 06:31] LABS: Creatine Kinase IFCC 1638 U/L (46-171)
--- NOTE | 2025-06-01 12:02 | DVHPN2 ---
Progress Note Date Seen: Jun 01, 2025 Medical Necessity Reason Pt with a Central, PICC or Fol: No Subjective Patient reports: No new complaints Other Systems: Patient seen and examined by myself today in follow-up Objective vital signs Vital Sign Date Time Temp Pulse Resp B/P (MAP) Pulse Ox O2 Delivery O2 Flow Rate FiO2 06/01/25 08:54 98.6 85 20 150/84 (106) 96 98.6 05/31/25 20:00 Room Air* 0 21 Total Intake and Output 05/31/25 05/31/25 06/01/25 15:00 23:00 07:00 Intake Total 450 ml 860 ml 240 ml Output Total 225 ml Balance 450 ml 635 ml 240 ml medications Current Medications Medications Dose Ordered Sig/Don Route Start Time Stop Time Status Last Admin Dose Admin Cefepime HCl 50 ml @ 12.5 mls/hr DAILY IV 05/30/25 10:00 06/01/25 10:23 12.5 MLS/HR Ondansetron HCl 4 mg Q4HP PRN IV 05/29/25 23:30 Nitroglycerin 0.4 mg Q5MINP PRN SL 05/29/25 23:30 Morphine Sulfate 2 mg Q30M PRN IV 05/29/25 23:30 Pantoprazole Sodium 40 mg DAILY IV 05/30/25 10:00 06/01/25 10:23 40 MG Risperidone 1 mg BID PO 05/30/25 22:00 06/01/25 10:24 1 MG Potassium Chloride 20 meq/ Dextrose 1,010 ml @ 100 mls/hr Q10H6M IV 05/31/25 14:45 06/01/25 00:50 100 MLS/HR Examination: LUNGS:Normal, CVS:Normal, MSK:Normal laboratory and microbiology Laboratory Tests 06/01/25 05:14 05/31/25 04:46 Test 06/01/25 05:14 Range/Units Serum Glucose 113 H 74-106 mg/dL Microbiology Date/Time Source Procedure Growth Status 05/29/25 16:59 Blood Blood Culture - Preliminary NO GROWTH AFTER 48 HOURS OF INCUBATION. Resulted Problem List/Assessment/Plan Problem List/Assessment/Plan Acute kidney injury superimposed Chronic Kidney Disease secondary hemodynamic mediated, FeNa > 2% Drug intoxication Encephalopathy Acute rhabdomyolysis Sepsis Polysubstance abuse Metabolic acidosis Dehydration BPH Hypernatremia due to dehydration Recommendations Kidney function resolved back to normal No urine output charted Francis catheter Strict I&Os Increase p.o. water intake kidney ultrasound reported enlarged prostate but no hydronephrosis I will sign off this case, please reconsult as needed Thank you for the consult Plan discussed with: Patient My Orders My Orders Orders - SANDRA GARDNER MD Procedure Category Date Status Time D5w 5% (Dextrose 5%) PHA 05/31/25 In Process W/Potassium Chlorid 14:45 SANDRA GARDNER MD Jun 01, 2025 12:02
--- NOTE | 2025-06-01 14:55 | DVHPN2 ---
Subjective Patient denies any symptoms at this time Reviewed: Care Plan, H&P, Labs, Medications Changes from previous H/P or p: No Changes General: Per HPI Objective Vitals Vital Signs Date Time Temp Pulse Resp B/P (MAP) Pulse Ox O2 Delivery O2 Flow Rate FiO2 06/01/25 13:00 97.7 89 20 163/59 (93) 95 97.7 06/01/25 08:00 Room Air* 0 21 Intake/Output Intake and Output 06/01/25 07:00 Intake Total 1550 ml Output Total 225 ml Balance 1325 ml Intake Oral 800 ml IV Total 750 ml Output Urine Total 225 ml # Voids 5 # Bowel Movements 2 General Appearance: Alert, Oriented X3, Cooperative, Other (Oriented x2. Encephalopathic) HEENT: Atraumatic, PERRLA Lungs: Clear to auscultation, Normal air movement Cardiovascular: Normal S1, Normal S2 Abdomen: Normal bowel sounds, Soft, No tenderness Musculoskeletal: Normal sensory function, Normal motor function Skin: Dry, Intact Psych/Mental Status: Mood NL Medications Current Medications Medications Dose Ordered Sig/Don Route Start Time Stop Time Status Last Admin Dose Admin Cefepime HCl 50 ml @ 12.5 mls/hr DAILY IV 05/30/25 10:00 06/01/25 10:23 12.5 MLS/HR Ondansetron HCl 4 mg Q4HP PRN IV 05/29/25 23:30 Nitroglycerin 0.4 mg Q5MINP PRN SL 05/29/25 23:30 Morphine Sulfate 2 mg Q30M PRN IV 05/29/25 23:30 Pantoprazole Sodium 40 mg DAILY IV 05/30/25 10:00 06/01/25 10:23 40 MG Risperidone 1 mg BID PO 05/30/25 22:00 06/01/25 10:24 1 MG Potassium Chloride 20 meq/ Dextrose 1,010 ml @ 100 mls/hr Q10H6M IV 05/31/25 14:45 06/01/25 00:50 100 MLS/HR Laboratory Results Laboratory Tests 05/31/25 04:46 06/01/25 05:14 Chemistry Test 06/01/25 05:14 Albumin 3.7 g/dL (3.2-4.8) Calcium Level 8.5 mg/dL (8.7-10.4) L Phosphorus Level 1.0 mg/dL (2.4-5.1) L Total Protein 6.6 g/dL (5.7-8.2) LFT Test 06/01/25 05:14 Alanine Aminotransferase (ALT) 47 U/L (7-40) H Alkaline Phosphatase 79 U/L (46-116) Aspartate Amino Transferase (AST) 115 U/L (13-40) H Total Bilirubin 0.9 mg/dL (0.2-1.0) Urinalysis Test 05/29/25 22:18 05/30/25 14:08 Urine Amorphous Crystals Few /hpf (None Seen) Urine Hyaline Casts Many /lpf (0 - 2) Urine Mucus Few (None Seen) Urine Color Light-yellow (Yellow) Urine Clarity Clear (Clear) Urine pH 5.5 (5.0-9.0) Urine Specific [place] 1.017 (1.001-1.035) Urine Protein 1+ (Negative) H Urine Ketones 1+ (Negative) H Urine Blood 3+ /uL (Negative) H Urine Nitrite Negative (Negative) Urine Bilirubin Negative (Negative) Urine Urobilinogen Normal mg/dL (Negative) Urine Leukocyte Esterase Negative /uL (Negative) Urine RBC 3 /hpf (0 - 3) Urine Microscopic WBC 2 /HPF (0-3) Urine Squamous Epithelial Cells Few /hpf (<5) Urine Bacteria Few /hpf (None Seen) H Urine Osmolality 590 mOsm/kg Urine Creatinine 61.92 mg/dL (30.0-125.0) Urine Protein/Creatinine Ratio 1.13 Urine Sodium 63 mmol/L (40-220) Urine Glucose Normal mg/dL (Normal) Urine Total Protein 69.7 mg/dL (1-14) H Microbiology Microbiology Date/Time Source Procedure Growth Status 05/29/25 16:59 Blood Blood Culture - Preliminary NO GROWTH AFTER 48 HOURS OF INCUBATION. Resulted Labs and/or images reviewed: Labs reviewed by me, Image(s) reviewed by me Assessment/Plan Assessment/Plan Impression: -toxic metabolic encephalopathy -polysubstance abuse with alcohol and amphetamines -acute kidney injury, vasomotor nephropathy -rhabdomyolysis -sirs, rule out sepsis -rule out underlying psychiatric disorder Plan: EVENTS: PATIENT IS PHOS 1.0. Patient is now A&O x4. Renal function improving. Leukocytosis improving. -K-Phos rider -continue IV hydration -nephrology consultation: Recommendations reviewed -renal ultrasound reviewed -psychiatry consultation: Recommendations reviewed. Risperidone 1 mg p.o. b.i.d. started -repeat labs in a.m. -reassess for discharge in a.m. Total time spent with patient discussing and formulating plan of care: 35 minutes. This medical document was created using an electronic medical record system with [employer] system. Although this document has been carefully reviewed, there may still be some phonetic and typographical errors. These areas are purely typographical due to imperfections of the software programs, and do not reflect any compromise in the patient's medical care. Plan discussed with: Patient, Other (RN) My Orders Orders - LUCERO RICHARD NP Procedure Category Date Status Time Potassium Phosphate PHA 06/01/25 In Process 13:45 Basic Metabolic Panel LAB 06/02/25 Verified 04:00 Phosphorus LAB 06/02/25 Verified 04:00 Complete Blood Count LAB 06/02/25 Verified 04:00 Date of Service: Jun 01, 2025 Billing Provider: LUCERO RICHARD NP Common Visit Codes: [id number] INP/OBS CARE(HIGH) LUCERO RICHARD NP Jun 01, 2025 14:55
[2025-06-01] MEDS: POTASSIUM PHOSPHATE 26.4 MEQ in SODIUM CHL 0.9% 100 ML IV ONE (17:40)
[2025-06-02 01:00] VITALS: BP 157/89; PULSE 87; RESP 17; TEMP 97.9; O2SAT 98
[2025-06-02 05:00] VITALS: BP 158/97; PULSE 85; RESP 18; TEMP 98; O2SAT 98
[2025-06-02 06:54] LABS: Hematocrit 40.2 % (41.0-53.0); Hemoglobin 13.9 g/dL (13.5-17.5); Mean Corpuscular Hemoglobin 33.2 pg (28.0-32.0); Mean Corpuscular Volume 95.9 fL (80.0-100.0); Nucleated Red Blood Cells % 0.2 %
[2025-06-02 07:02] LABS: Anion Gap 10 (5-15); Calcium 8.7 mg/dL (8.7-10.4); Carbon Dioxide 27 mmol/L (20-31)
[2025-06-02 07:08] LABS: BUN/Creatinine Ratio 14.7 (10.0-20.0); Blood Urea Nitrogen 11 mg/dL (9-23); Glucose 101 mg/dL (74-106)
[2025-06-02 07:11] LABS: Chloride 108 mmol/L (98-107); Potassium 3.4 mmol/L (3.5-5.1); Sodium 145 mmol/L (136-145)
[2025-06-02 08:00] VITALS: PULSE 95; PULSE 98; RESP 18; O2SAT 98
[2025-06-02 09:00] VITALS: BP 162/112; PULSE 98; RESP 18; TEMP 98.5; O2SAT 98
== END 2025-06-02 12:43 | disposition left against medical advice (07) | DRG 91 ==
LOC: ER 14:23 → EDBD 14:23 → EDUNIT# 23:30 → OVERFLOW 23:30 → TELE-WESTW 05-30 17:38
PROVIDERS: ADMIT Nurse Practitioner Acute Care; ATTEND Nurse Practitioner Acute Care
DX: G92.8 Other toxic encephalopathy (principal); N17.0 Acute kidney failure with tubular necrosis; M62.82 Rhabdomyolysis; E87.0 Hyperosmolality and hypernatremia; F19.129 Other psychoactive substance abuse with intoxication, unspecified; N18.9 Chronic kidney disease, unspecified; F20.9 Schizophrenia, unspecified; F10.10 Alcohol abuse, uncomplicated; E87.20 Acidosis, unspecified; E86.0 Dehydration; R74.01 Elevation of levels of liver transaminase levels; N40.0 Benign prostatic hyperplasia without lower urinary tract symptoms; T43.655A Adverse effect of methamphetamines, initial encounter; Z53.29 Procedure and treatment not carried out because of patient's decision for other reasons; Z82.3 Family history of stroke; Z91.81 History of falling; Y92.89 Other specified places as the place of occurrence of the external cause
CPT/HCPCS: 36415; 36600; 70450; 71045; 76775; 80048; 80053; 80307; 81001; 82306; 82550; 82553; 82570; 82805; 83605; 83735; 83880; 83935; 83970; 84100; 84156; 84300; 85025; 86803; 87040; 87340; 93005; 96365; 96368; 96372; 96375; G0378; J2250; J2470